=== PATIENT | male | born 1995 | race Caucasian/White ===

== ENCOUNTER 2018-01-01 14:17 | Emergency (ER) | payer OTHER ==
[2018-01-01 14:27] VITALS: BP 121/67; PULSE 94; RESP 18; TEMP 98.7
--- NOTE | 2018-01-01 14:48 | ED ---
General Adult HPI - General Chief complaint: Extremity Injury, Upper Stated complaint: wrist pain Time Seen by Provider: 01/01/18 14:36 Source: patient, RN notes reviewed Mode of arrival: ambulatory Limitations: no limitations - History of Present Illness Initial comments: 22-year-old male presents to the emergency department for chief complaint of right wrist pain 3 weeks. Patient states that 3 weeks ago he was trying to protect a baby from a pit bull and had to fight the dog. Patient denies any bites or puncture wounds. Patient denies sustaining any scratch wounds from the pimple. Patient states his pain is an 8 out of 10 and describes as a sharp shooting pain. Patient states movement of the wrist makes the pain worse. Patient denies any other injuries. Patient states he has tried Motrin and Tylenol as well as wrapping the wrist but it does not seem to be getting better. Patient has no other complaints at this time including shortness of breath, chest pain, abdominal pain, nausea or vomiting, headache, or visual changes. - Related Data Allergies Allergy/AdvReac Type Severity Reaction Status Date / Time No Known Allergies Allergy Verified 01/01/18 14:24 Review of Systems ROS Statement: Those systems with pertinent positive or pertinent negative responses have been documented in the HPI. ROS Other: All systems not noted in ROS Statement are negative. Past Medical History Additional Past Medical History / Comment(s): heart murmur History of Any Multi-Drug Resistant Organisms: None Reported Past Surgical History: No Surgical Hx Reported Past Psychological History: No Psychological Hx Reported Smoking Status: Current every day smoker Past Alcohol Use History: None Reported Past Drug Use History: None Reported General Exam Limitations: no limitations General appearance: alert, in no apparent distress Head exam: Present: atraumatic, normocephalic, normal inspection Eye exam: Present: normal appearance, PERRL, EOMI. Absent: scleral icterus, conjunctival injection, periorbital swelling ENT exam: Present: normal exam, mucous membranes moist Neck exam: Present: normal inspection, full ROM. Absent: tenderness, meningismus, lymphadenopathy Respiratory exam: Present: normal lung sounds bilaterally. Absent: respiratory distress, wheezes, rales, rhonchi, stridor Cardiovascular Exam: Present: regular rate, normal rhythm, normal heart sounds. Absent: systolic murmur, diastolic murmur, rubs, gallop, clicks Extremities exam: Present: full ROM (Full range of motion of the right wrist in all digits in the right hand), tenderness (Tenderness to the scaphoid and radial volar right wrist. No tenderness in the right hand including the metacarpals and digits. No tenderness in the flexor tendons.), normal capillary refill (Capillary refill less than 2 seconds and radial pulse 2+ in the right upper extremity), other (Sensation intact in the right upper extremity. No evidence of infection such as spreading redness warmth or swelling.). Absent: joint swelling (Erythema, edema, ecchymosis noted in the right wrist. No evidence of infection. ) Course Vital Signs 01/01/18 14:24 Temperature 98.7 F Pulse Rate 94 Respiratory 18 Rate Blood Pressure 121/67 O2 Sat by Pulse 97 Oximetry Procedures - Procedures Initial comment: Neurovascular intact before splint application Indication: Right wrist pain Type: OCL short arm thumb spica Wounds: no abrasions or lacerations underneath splint Neurovascular status: patient has sensation and movement of digits extending outside the splint, there is no cyanosis, capillary refill < 2 seconds Follow-up: patient given number for orthopedics and instructed to phone to make an appointment. Patient aware he can return to the Emergency Department if any difficulties. Medical Decision Making - Medical Decision Making 22-year-old male with wrist pain 3 weeks. Patient was "fighting off a pimple" when this injury occurred. On exam patient does have scaphoid tenderness as well as radial volar wrist tenderness. Positive Hina test. Wrist x-ray showed no abnormalities evident. No fracture or dislocation. As patient has had pain for 3 weeks without resolution he will be splinted in a thumb spica. He will follow up with orthopedics in one to 2 days. Patient aware to return to the emergency department if he has any worsening symptoms. Disposition Clinical Impression: Wrist pain, right Disposition: HOME SELF-CARE Condition: Good Instructions: Wrist Injury (ED) Additional Instructions: Please take Motrin and Tylenol for pain. Please rest ice and elevate the right wrist. Follow-up with orthopedics in one to 2 days. Return immediately to the emergency department if you have any worsening symptoms. Is patient prescribed a controlled substance at d/c from ED?: No Referrals: Bo Tamayo MD [STAFF PHYSICIAN] - 1-2 days Time of Disposition: 15:22
--- NOTE | 2018-01-01 15:10 | XR ---
Right wrist HISTORY: Wrist pain for 3 weeks Bone mineralization, joint spaces and alignment are maintained. No fracture or dislocation. IMPRESSION: No abnormalities evident. Wrist MRI may be of benefit.
== END 2018-01-01 15:42 | disposition home or self-care (01) ==
LOC: EC 14:17
DX: M25.531 Pain in right wrist (principal); F17.200 Nicotine dependence, unspecified, uncomplicated
CPT/HCPCS: 29125; 99283